=== PATIENT | female | born 1990 | race Two or more races ===

== ENCOUNTER 2022-11-10 21:13 | Emergency (ER) | payer OTHER ==
[~2022-11-10] VITALS: Ht 154.9 cm; Wt 90.7 kg
--- NOTE | 2022-11-10 21:55 | NUR ---
COMBATIVE AND AGITATED. WITH VERBAL ORDER FROM DR KAUR FOR IM ZYPREXA 10MG, NOTED
[2022-11-10] MEDS ORDERED: OLANZAPINE 10 MG VIAL IM ONE ×2 (21:58→22:00)
--- NOTE | 2022-11-10 22:51 | NUR ---
URINE COLLECTED, SENT TO LAB
[2022-11-10 23:21] LABS: BASOPHILS % (AUTO) 0.2 % (0.0-2.0); EOSINOPHILS % (AUTO) 0.4 % (0.0-6.0); HEMATOCRIT 38 % (33-45); HEMOGLOBIN 12.6 g/dL (11.5-14.8); LYMPHOCYTES # (AUTO) 1.1 K/uL (0.8-4.8); LYMPHOCYTES % (AUTO) 13.6 % (20.0-44.0); MEAN CORPUSCULAR HGB CONC 34 g/dl (31.0-36.0); MEAN CORPUSCULAR VOLUME 82 fL (82-100); MONOCYTES # (AUTO) 0.3 K/uL (0.1-1.30); MONOCYTES % (AUTO) 4.1 % (2.0-12.0); NEUTROPHILS # (AUTO) 6.5 K/uL (1.8-8.9); NEUTROPHILS % (AUTO) 81.7 % (43.0-81.0); PLATELET COUNT (AUTO) 378 K/uL (150-450); RED BLOOD CELL COUNT(AUTO) 4.56 MIL/uL (4.0-5.2)
[2022-11-10 23:29] LABS: BILIRUBIN,URINE NEGATIVE (NEGATIVE); COLOR,URINE YELLOW (YELLOW); LEUKOCYTE ESTERASE ,URINE NEGATIVE (NEGATIVE); NITRITE, URINE NEGATIVE (NEGATIVE); PROTEIN,URINE NEGATIVE (NEGATIVE); UGLUCOSE NEGATIVE (NEGATIVE); UROBILINOGEN,URINE 0.2 EU/dL (0.2)
--- NOTE | 2022-11-10 23:35 | NUR ---
UPDATE GIVEN TO PT'S PARTNER NEO. PLS CALL HER FOR UPDATES. NUMBER IS IN PT'S DEMOGRAPHIC
[2022-11-10 23:37] LABS: CALCIUM, SERUM 8.9 mg/dL (8.5-10.1); CREATININE 0.8 mg/dL (0.6-1.3); POTASSIUM 3.5 mmol/L (3.5-5.1)
[2022-11-10 23:39] LABS: BACTERIA,URINE Rare /HPF (None Seen); HYALINE CASTS, URINE Few /LPF (None Seen); SQUAMOUS EPITHELIAL CELL,UR Moderate /HPF (None Seen); WBC,URINE 0-2 /HPF (0-3)
[2022-11-10 23:43] LABS: ALBUMIN 4.2 g/dL (3.4-5.0); BILIRUBIN,DIRECT 0.1 mg/dL (0.0-0.2); BILIRUBIN,TOTAL 0.1 mg/dL (0.2-1.0); TOTAL PROTEIN, SERUM 7.7 g/dL (6.4-8.2)
--- NOTE | 2022-11-11 11:53 | NUR ---
STANISLAV faxed clinicals to the following [facility]: [facility] fax:[phone] [facility] TEL: [phone] fax: [phone] [facility] fax:[phone] tel:[phone] [facility] tel:[phone] FAX: [phone] [facility]: TEL: [phone] [facility] FAX [phone] [facility] TEL: [phone]
--- NOTE | 2022-11-11 11:56 | NUR ---
JERRICA NEGRO OF [facility] [phone] JANIS Amin GOING TO ROOM 224-1 PLEASE CALL [phone] FOR REPORT ASK FOR LULÚ.
--- NOTE | 2022-11-11 12:01 | NUR ---
CALLED [facility] FOR TRANSPORT ETA 60 MINS.
--- NOTE | 2022-11-11 12:33 | NUR ---
ROOM 230-1
--- NOTE | 2022-11-11 12:33 | NUR ---
CALLED FOR REPORT , WAS ASKED TO CALLBACK IN 15 MIN.
--- NOTE | 2022-11-11 12:55 | NUR ---
ROOM 222
--- NOTE | 2022-11-11 13:02 | NUR ---
REPORT GIVEN TO PAT IN [facility]
--- NOTE | 2022-11-11 13:06 | NUR ---
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
[2022-11-11 13:11] VITALS: BP 141/81
--- NOTE | 2022-11-11 13:11 | NUR ---
TRANSPORT AT BEDSIDE FOR PICKUP
== END 2022-11-11 13:12 | disposition short-term general hospital (02) ==
LOC: ER 21:16
DX: R45.851 Suicidal ideations (principal); F10.129 Alcohol abuse with intoxication, unspecified; Z20.822 Contact with and (suspected) exposure to COVID-19; Y90.6 Blood alcohol level of 120-199 mg/100 ml
CPT/HCPCS: 99285; 96372; 85025; 80048; 80076; 84703; 81001; 36415 ×2; 87426; 80143; 80320 ×2; 80307; J3490; C9803; G0480